=== PATIENT | female | born 1945 | race Caucasian/White ===

== ENCOUNTER 2016-09-16 11:42 | Emergency (ER) | payer MEDICARE, BC ==
[~2016-09-16] VITALS: Ht 152.4 cm; Wt 67.0 kg
[2016-09-16 11:46] VITALS: BP_SYST 117; BP_SYST 17; BP_DIAS 52; PULSE 65; RESP 18; TEMP 97.9; O2SAT 97
--- NOTE | 2016-09-16 12:06 | PD ---
HPI Chief Complaint: Head Injury Time Seen by Provider: 12:00 Travel History International Travel<30 days: No Contact w/Intl Traveler<30days: No Traveled to known affect area: No History of Present Illness HPI 71-year-old female here after fall. Patient slipped on concrete and fell forward hitting her nose and head yesterday at approximately 8 PM. No LOC but she has had persistent pain in the frontal region and nasal pain. She is not anticoagulated per her report but does not know her home medication list well. She denies any nausea, vomiting, neck or back pain. PFSH Past Medical History Cardiovascular Problems: Yes Social History Tobacco Use: No Allergies-Medications (Allergen,Severity, Reaction): Coded Allergies: Ampicillin (Verified Allergy, Severe, 09/16/16) Morphine (Verified Allergy, Severe, 09/16/16) Reported Meds & Prescriptions Reported Meds & Active Scripts Active Reported Synthroid (Levothyroxine Sodium) 100 Mcg Tab 100 Mcg PO DAILY Coreg (Carvedilol) 3.125 Mg Tab 3.125 Mg PO BID Furosemide 20 Mg Tab 20 Mg PO DAILY Aspirin Low Dose (Aspirin) 81 Mg Chew 81 Mg CHEW DAILY Sertraline (Sertraline HCl) 100 Mg Tab 150 Mg PO DAILY Protonix (Pantoprazole Sodium) 40 Mg Tab 40 Mg PO BID Atorvastatin (Atorvastatin Calcium) 40 Mg Tab 40 Mg PO HS Multi-Vitamin Daily (Multiple Vitamin) 1 Tab Tab 1 Tab PO DAILY Review of Systems Except as stated in HPI: all other systems reviewed are Neg Physical Exam Narrative GENERAL: Well-appearing female in no acute distress SKIN: Focused skin assessment warm/dry. HEAD: Contusion to the midline forehead Normocephalic. EYES: Pupils equal and round. 3 mm. EOMI without afferent pupillary defect. No scleral icterus. No injection or drainage. ENT: Contusion of the nasal bridge with tenderness to palpation but no tenderness to palpation of the remainder bony anatomy of the face. Mucous membranes pink and moist. NECK: Supple without midline tenderness to palpation CARDIOVASCULAR: Regular rate and rhythm. RESPIRATORY: No accessory muscle use. MUSCULOSKELETAL: Moves all extremities normally, normal gait NEUROLOGICAL: Awake and alert. No obvious cranial nerve deficits. Motor grossly within normal limits. Normal speech. PSYCHIATRIC: Appropriate mood and affect; insight and judgment normal. Data Data Last Documented VS Vital Signs Date Time Temp Pulse Resp B/P Pulse Ox O2 Delivery O2 Flow Rate FiO2 6/12/17 12:05 Room Air 09/16/16 11:46 97.9 65 18 117/[address] Brain W/O Iv Contrast(Rout) (09/16/16 12:04) MDM Medical Decision Making Medical Screen Exam Complete: Yes Emergency Medical Condition: Yes Medical Record Reviewed: Yes Differential Diagnosis 71-year-old female here with complaint of headache and nasal pain after mechanical fall yesterday. Differential includes closed head injury, skull fracture, ICH, nasal fracture, nasal contusion Narrative Course CT of the brain showed no intracranial abnormalities. Patient reassured and instructed to ice the nasal bridge, Tylenol Motrin as needed for pain. Diagnosis Primary Impression: Nasal contusion Additional Impressions: Forehead contusion Qualified Code: S00.83XA - Forehead contusion, initial encounter Closed head injury Qualified Code: S09.90XA - Closed head injury, initial encounter Fall Qualified Code: W19.XXXA - Fall, initial encounter Referrals: Primary Care Physician as needed Additional Instructions: Tylenol, Motrin as needed for pain. Ice the affected area 20 minutes at a time 3-4 times daily. Med/Other Pt SpecificInfo: No Change to Meds Disposition: 01 DISCHARGE HOME Condition: Stable Helene Wylie MD Sep 16, 2016 12:06
[2016-09-16] MEDS ORDERED: CARV3.125 PO (12:44)
[2016-09-16] MEDS ORDERED: ASPI81CH37 CHEW (12:44)
[2016-09-16] MEDS ORDERED: MULT-65 PO (12:44)
[2016-09-16] MEDS ORDERED: ATOR40TA16 PO (12:44)
[2016-09-16] MEDS ORDERED: PROT40TA PO (12:44)
[2016-09-16] MEDS ORDERED: FURO20TA PO (12:44)
[2016-09-16] MEDS ORDERED: SERT-129 PO (12:44)
[2016-09-16] MEDS ORDERED: LEVO.1 PO (12:44)
--- NOTE | 2016-09-16 13:16 | RADHPO ---
EXAM DATE/TIME: 09/16/2016 12:57 [facility] COMPARISON: No previous studies available for comparison. INDICATIONS : Fell yesterday. Headache. RADIATION DOSE: 65.09 CTDIvol (mGy) MEDICAL HISTORY : None SURGICAL HISTORY : None. ENCOUNTER: Initial ACUITY: 2 days PAIN SCALE: 4/10 LOCATION: frontal TECHNIQUE: Multiple contiguous axial images were obtained of the head. Using automated exposure control and adjustment of the mA and/or kV according to patient size, radiation dose was kept as low as reasonably achievable to obtain optimal diagnostic quality images. FINDINGS: CEREBRUM: The ventricles are normal for age. No evidence of midline shift, mass lesion, hemorrha ge or acute infarction. No extra-axial fluid collections are seen. POSTERIOR FOSSA: The cerebellum and brainstem are intact. The 4th ventricle is midline. The cer ebellopontine angle is unremarkable. EXTRACRANIAL: The visualized portion of the orbits is intact. SKULL: The calvaria is intact. No evidence of skull fracture. CONCLUSION: Negative for an acute process. Roberto Rico MD FACR on September 16, 2016 at 13:13 Board Certified Radiologist. This report was verified electronically.
== END 2016-09-16 13:31 | disposition home or self-care (01) ==
LOC: PHED 11:42
DX: S09.90XA Unspecified injury of head, initial encounter (principal); S00.83XA Contusion of other part of head, initial encounter; S00.33XA Contusion of nose, initial encounter; W01.0XXA Fall on same level from slipping, tripping and stumbling without subsequent striking against object, initial encounter; Y93.9 Activity, unspecified; Y92.9 Unspecified place or not applicable; Y99.8 Other external cause status
CPT/HCPCS: 70450; 99284